=== PATIENT | female | born 1960 | race Caucasian/White ===

== ENCOUNTER 2016-08-19 13:33 | Day surgery (SDC) | payer OTHER ==
[~2016-08-19] VITALS: Ht 162.6 cm; Wt 72.0 kg
[~2016-08-19 13:33] MED LIST: 0.9% Sodium Chloride 1,000 ML IV PRN; ALPR0.25 PO; BUSP30TA2 PO; CLOB15CR3 TOP; DIAZ5TAB3 PO; METO25TA6 PO; OMEP20TA24 PO; SERT50TA PO; Sodium Chloride LOK Flush 10 mL Syringe IV PRN; TRAM50TA2 PO; TRAZ-115 PO; fentaNYL-PF 50 mCg/mL 2 mL Inj IVPUSH PRN
[2016-08-19 14:56] VITALS: BP 114/67; PULSE 44; RESP 14; O2SAT 99
[2016-08-19 17:06] VITALS: BP 112/61; PULSE 49; RESP 14; O2SAT 98
[2016-08-19 17:16] VITALS: BP 112/57; PULSE 48; RESP 12; O2SAT 100
[2016-08-19 17:26] VITALS: BP 115/63; PULSE 45; RESP 12; O2SAT 100
[2016-08-19 17:36] VITALS: BP 110/59; PULSE 53; RESP 14; O2SAT 100
--- NOTE | 2016-08-19 23:03 | ENDO ---
[address] [address] ENDOSCOPY PROCEDURE PATIENT: ANTHONY GARCIA : 1960 MR#: [id number] ADMIT: 08/19/2016 JOB ID: [id number] DATE OF PROCEDURE: 08/19/2016 PRIMARY PROVIDER: Audra Nichols MD. PROCEDURE: Colonoscopy. INDICATIONS: A 55-year-old female who reports for colon cancer screening. EQUIPMENT: PCF-H180AL. SEDATION: 1. Versed 6 mg. 2. Fentanyl 125 mcg. COMPLICATIONS: None identified. BOWEL PREPARATION: Fair, adequate exam. PROCEDURE INFORMATION: After the risks and benefits were explained, written and verbal informed consent was obtained. The patient was brought into the endoscopy suite and placed into the left lateral decubitus position. Sedation was achieved as above. A digital rectal examination accomplished. No pathology appreciated. The scope was introduced into the rectum and advanced under direct visualization to the level of the cecum, as identified by the appendiceal orifice and ileocecal valve. The scope was slowly withdrawn to carefully examine the mucosa for any defects or lesions. Retroflexed views were avoided in the rectum. Multiple direct views were made through the dentate line for exclusion of pathology. The colon was decompressed. The scope was removed from the patient who tolerated the procedure well. FINDINGS: No significant polyps, mass lesions, or inflammatory features identified throughout. 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 ENDOSCOPIC DIAGNOSES: Visually unremarkable colonoscopy apart from mild melanosis coli. RECOMMENDATIONS: Repeat colonoscopy in 10 years' time, sooner should symptoms warrant.
== END 2016-08-19 23:59 | disposition home or self-care (01) ==
LOC: END 13:33
PROVIDERS: ATTEND Internal Medicine Gastroenterology
PROC: 0DJD8ZZ Inspection of Lower Intestinal Tract, Via Natural or Artificial Opening Endoscopic (ICD-10-PCS; principal; 2016-08-19 14:30)
DX: Z12.11 Encounter for screening for malignant neoplasm of colon (principal); K21.9 Gastro-esophageal reflux disease without esophagitis; F41.8 Other specified anxiety disorders; Z87.891 Personal history of nicotine dependence; K63.89 Other specified diseases of intestine